=== PATIENT | male | born 1990 | race American Indian/Alaskan Native ===

== ENCOUNTER 2018-11-28 14:13 | Emergency (ER) | payer OTHER ==
[2018-11-28 15:00] VITALS: BP 129/86
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
[2018-11-28] MEDS ORDERED: NORCO 10/325 PO STA (19:23)
--- NOTE | 2018-11-28 19:28 | XRay Report ---
FINAL REPORT EXAM: XR SPINE LUMBOSACRAL 2-3V HISTORY: low back pain TECHNIQUE: 2 views of the lumbar spine PRIORS: None. FINDINGS: The lumbar vertebral bodies are normal in height. Vertebral alignment is normal. The disc spaces appe ar well-preserved. The soft tissues are unremarkable. IMPRESSION: Normal L-spine series.
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
== END 2018-11-28 20:00 | disposition home or self-care (01) ==
LOC: ED 14:13
DX: M54.5 Low back pain (principal); V89.2XXA Person injured in unspecified motor-vehicle accident, traffic, initial encounter; Y93.89 Activity, other specified; Y92.488 Other paved roadways as the place of occurrence of the external cause; Y99.8 Other external cause status
CPT/HCPCS: 72100; 99283